=== PATIENT | female | born 1985 | race Caucasian/White ===

== ENCOUNTER 2016-03-17 18:07 | Inpatient (IN) | payer OTHER ==
[~2016-03-17] VITALS: Ht 165.1 cm; Wt 65.2 kg
[~2016-03-17 18:07] MED LIST: NO HOME MEDICATIONS
[2016-03-17 23:40] VITALS: BP 118/56; PULSE 87
[2016-03-17 23:47] VITALS: BP 119/65; PULSE 90; TEMP 97.6
[2016-03-17 23:55] VITALS: BP 119/65; PULSE 89
[2016-03-18] VITALS (11 sets, daily range): BP systolic 106–133; BP diastolic 60–94; PULSE 70–97; TEMP 97.3–99.2
[2016-03-19 02:29] VITALS: BP 123/66; PULSE 93; TEMP 98.7
[2016-03-19 05:14] VITALS: BP 115/65; PULSE 77; TEMP 98.2
[2016-03-19 10:14] VITALS: BP 120/76; PULSE 87; TEMP 97.9
[2016-03-19 13:45] VITALS: BP 120/77; PULSE 81; TEMP 98
[2016-03-19 17:25] VITALS: BP 119/68; PULSE 79; TEMP 98
[2016-03-19 21:20] VITALS: BP 133/75; PULSE 80; TEMP 98.8
[2016-03-20 01:33] VITALS: BP 129/66; PULSE 82; TEMP 99.1
[2016-03-20 05:23] VITALS: BP 130/64; PULSE 76; TEMP 98.3
[2016-03-20] MEDS ORDERED: NORCO 325 MG-7.1 TAB PO (07:31)
[2016-03-20] MEDS ORDERED: ROXICODONE 55 MG/TAB PO (07:31)
[2016-03-20] MEDS ORDERED: COLACE 100100 MG/CAP PO (07:32)
[2016-03-20 10:00] VITALS: BP 118/73; PULSE 94; TEMP 97.3
[2016-03-20 13:43] VITALS: BP 120/78; PULSE 86; TEMP 97.4
[2016-03-20 13:56] VITALS: BP 120/78; PULSE 86; TEMP 97.4
== END 2016-03-20 17:02 | disposition home or self-care (01) | DRG 494 ==
LOC: COL.ER 18:07 → SURG 18:54
PROVIDERS: Orthopaedic Surgery
PROC: 0QSG06Z Reposition Right Tibia with Intramedullary Internal Fixation Device, Open Approach (ICD-10-PCS; principal; 2016-03-17 20:00)
DX: S82.391A Other fracture of lower end of right tibia, initial encounter for closed fracture (principal); S82.831A Other fracture of upper and lower end of right fibula, initial encounter for closed fracture; V00.211A Fall from ice-skates, initial encounter
CPT/HCPCS: C1713; J0690; J1100; J1170; J1650; J2270; J2405; J2704; J2765; J3010; J7030; J7120; L2114

== ENCOUNTER → 2016-03-24 | Outpatient (CLI) | payer OTHER ==
[~2016-03-24] MED LIST changes: +COLACE 100100 MG/CAP PO; +NORCO 325 MG-7.1 TAB PO; +ROXICODONE 55 MG/TAB PO
== END ==
LOC: COL.VAS 14:45
DX: M79.604 Pain in right leg (principal); M79.89 Other specified soft tissue disorders